=== PATIENT | male | born 1965 | race Two or more races ===

== ENCOUNTER 2024-04-28 16:59 | Emergency (ER) | payer OTHER ==
[~2024-04-28] VITALS: Ht 180.3 cm; Wt 93.4 kg
[2024-04-28 17:06] VITALS: BP 140/90; O2SAT 99
[2024-04-28] MEDS ORDERED: VITAMIN D310 MCG/1 M (17:06)
[2024-04-28] MEDS ORDERED: ZESTRIL10 M1 (17:06)
[2024-04-28] MEDS ORDERED: KETOROLAC TROMETHAMINE 15 MG VIAL IV STA (19:52)
[2024-04-28] MEDS ORDERED: ORPHENADRINE CITRATE 30 MG/ML AMPUL IM STA (19:52)
[2024-04-28] MEDS ORDERED: METHYLPREDNISOLONE SOD SUCC 40 MG VIAL IV STA (19:52)
[2024-04-28] MEDS ORDERED: ORPHENADRINE CITRATE 30 MG/ML AMPUL ONE (20:12)
[2024-04-28] MEDS ORDERED: METHYLPREDNISOLONE SOD SUCC 40 MG VIAL ONE (20:12)
[2024-04-28] MEDS ORDERED: KETOROLAC TROMETHAMINE 60 MG VIAL IM ONE (20:12)
[2024-04-28] MEDS ORDERED: IBU600 MG PO (22:58)
== END 2024-04-28 23:23 | disposition home or self-care (01) ==
LOC: ER 17:01
DX: M25.552 Pain in left hip (principal); I10 Essential (primary) hypertension